=== PATIENT | female | born 1970 | race Caucasian/White ===

== ENCOUNTER → 2022-04-14 | Outpatient (CLI) | payer BC ==
--- NOTE | 2022-04-14 20:21 | CONS ---
CONSULTATION DATE OF SERVICE: 04/14/2022 51-year-old lady has been evaluated in [facility] for obstructive sleep apnea- hypopnea syndrome. HISTORY OF PRESENT ILLNESS SLEEP-WAKE EVALUATION: The patient has history of obstructive sleep apnea diagnosed 23 years ago in another institution and according to patient, results of her sleep study at that time was not signed. She is using her CPAP equipment since that time. Last machine she received about 9 years ago. Presently machine sometimes has some problems when patient can not restart it. Her sleep schedule from 10:00 p.m. to 5:50 am on weekdays and from 10:30 p.m. to 8 a.m. on weekends. Sometimes she has problems with falling asleep, although no TV in bedroom. She usually sleeps on the back position. She wakes up from sleep 2 times with one episode of nocturia. No history of hypnagogic hallucinations, sleep paralysis or cataplexy. [place] Sleepiness Scale is 4. Usually she does not take naps. She has difficulties paying attention during the day. She wakes up tired has difficulties to concentrate. PAST MEDICAL HISTORY: Positive For Allergies. Sinuses problems and ovarian cancer. PAST SURGICAL HISTORY: Hysterectomy and tonsillectomy. MEDICATIONS: Furosemide 40 mg once a day, loratadine 10 mg once a day, aspirin 81 mg once a day, multivitamins. SOCIAL HISTORY: Negative for smoking, alcohol consumption occasional. FAMILY HISTORY: Heart problems, asthma, rheumatic fever, sleep apnea, diabetes, liver problems, cancer. REVIEW OF SYSTEMS: Awakenings from sleep. PHYSICAL EXAMINATION: GENERAL: lady without distress. BP 163/76, HR 80, RR 18, height 5 feet 7.5 inches, weight 384 pounds. Body mass index 59.1, temperature 96.9, oxygen saturation at room air 97%. Oropharynx: Extremely low position of soft palate, Mallampati 4. Neck is wide 17-1/2 inches in circumference. NECK: Supple, no JVD. Thyroid is not palpable. LUNGS: Clear to percussion and to auscultation. Good air exchange. No wheezing or rhonchi. HEART: S1, S2 regular. No murmurs, gallops, or rubs. ABDOMEN: Obese. Soft and nontender. Bowel sounds are present. No organomegaly appreciated. EXTREMITIES:Obese. No clubbing or cyanosis. GOVERNMENT TEACHER: Awake, alert, and oriented X3. Cranial nerves 2 to 7 intact. There is no fasciculation or atrophy. noted. No focal deficits observed. IMPRESSION: 1. History of obstructive sleep apnea for about 23 years. Sleep study was done previously in another institution, results of sleep study was not signed according to patient. The patient significantly changed weight since previous studies. Extremely low position of soft palate, Mallampati 4, wide neck, 17-1/2 inches in circumference, snoring, awakenings from sleep, obstructive sleep apnea-hypopnea syndrome. 2. Morbid obesity, body mass index 59.1. 3. Hypertension in the office. 4. History of ovarian cancer, status post hysterectomy. 5. Sinus problems. 6. Status post tonsillectomy. PLAN: 1. Polysomnography for evaluation of patient breathing at the present time. 2. CPAP if necessary, BiPAP titration for correction of patient respiratory abnormalities. 3. The patient new CPAP supplies after sleep studies will be done for aggressive losing weight program. 4. No driving if feeling sleepiness. Thank you very much for referring this patient for consultation. Sincerely, Gregorio Talamantes MD, PhD, FAASM Diplomat of [employer] Sleep Medicine Board of [employer] Store Administrator of [facility] [place] [email or web address] / FRANCEN: [id number] /
== END | disposition home or self-care (01) ==
LOC: SLEEP 14:42
PROVIDERS: ATTEND Internal Medicine
DX: G47.33 Obstructive sleep apnea (adult) (pediatric) (principal); E66.01 Morbid (severe) obesity due to excess calories; Z68.43 Body mass index [BMI] 50.0-59.9, adult; Z90.89 Acquired absence of other organs; Z90.79 Acquired absence of other genital organ(s)
CPT/HCPCS: 99202

== ENCOUNTER → 2022-08-31 | Outpatient (CLI) | payer BC ==
--- NOTE | 2022-08-31 15:30 | P.PN ---
Subjective DATE: 08/31/2022 FOLLOW UP VISIT. Patient with obstructive sleep apnea hypopnea syndrome return to sleep center for follow-up visit. Recently patient had sleep study which documented obstructive sleep apnea hypopnea syndrome. Patient was initiated on PAP therapy and today is first visit after treatment was started. I discuss results of sleep studies with patient in details. Patient was able to use PAP equipment every night for the whole night. The patient does not have significant problems with the mask, PAP pressure and humidification. [place] sleepiness scale is 1, which is perfect. I checked information from PAP unit. PAP unit pressure from 10-15 cm of water, average 10.6 cm H2O. Usage is 100 % for more then 4 hours, average 7.75 hours per night. Leak is 12.6 l/m, which is in acceptable range. Apnea Hypopnea Index is 0.4, which is normal. MEDICATIONS:1. Furosemide 40 mg once a day 2. Loratidine 10 mg once a day 3. Aspirin 81 mg once a day 4. Vitamins During physical exam: GENERAL: A pleasant patient without any distress. VITAL SIGNS: BP 158/96, HR 78, RR 18 , weight 371.6, temperature 96.5, oxygen saturation at room air 98% . HEENT: PERRLA, EOMI.low position of soft palate, Mallapati 4 . NECK: Supple. No JVD. LUNGS: Clear to percussion and to auscultation. Good air exchange. No wheezing or rhonchi. HEART: S1, S2 regular. ABDOMEN: Soft and nontender. Obese EXTREMITIES: No clubbing or cyanosis. TAR ROOFER: Awake, alert, and oriented x3. No focal deficit. Impressions: 1. Obstructive sleep apnea-hypopnea syndrome. Patient demonstrated great compliance with treatment, benefiting from treatment. 2. Obesity. 3. Hypertension in the office again. 4. History of ovarian cancer, status post hysterectomy. 5. History of sinuses problems. 6. Status post tonsillectomy. Plan: 1. Continue using PAP equipment every night for the whole night. 2. To change air filter at least 1-2 times per month. 3. PAP unit should stay lower then position of the head. 4. Advised patient to remove all remaining water from humidifier canister daily and make it dry after each usage. Refill canister with fresh distilled water before each usage. 5. Sleep hygiene with regular time in bed for at least 8 hours. 6. Precautions related to driving. No driving if feel any sleepiness. 7. I will maintain prescription for PAP supplies including mask, tube, filters. 8. Follow up visit in 6 months or earlier if patient has any problems. 9. Losing weight weight. 10. Monitoring blood pressure. Low sodium diet. Thank you very much for allowing me to participate in the management of your patient. Gregorio Talamantes MD, PhD, FAASM. Diplomat of [place] [employer], Sleep Medicine Board by [employer] Drafter of [facility] [place]
== END ==
LOC: SLEEP 15:05
PROVIDERS: ATTEND Internal Medicine
DX: G47.33 Obstructive sleep apnea (adult) (pediatric) (principal); Z99.89 Dependence on other enabling machines and devices; E66.9 Obesity, unspecified; I10 Essential (primary) hypertension; Z90.89 Acquired absence of other organs; Z87.09 Personal history of other diseases of the respiratory system; Z85.43 Personal history of malignant neoplasm of ovary; Z90.710 Acquired absence of both cervix and uterus